=== PATIENT | female | born 1960 ===

== ENCOUNTER 2018-01-26 07:39 | Day surgery (SDC) | payer MEDICAID ==
[2018-01-25 08:41] VITALS: BMI 39.9
[2018-01-26] MEDS ORDERED: ceFAZolin 1 gm in NS 1 GM/100 ML BAG IVPB ONE (09:34)
--- NOTE | 2018-01-26 09:50 | CP.SDSHP ---
Same Day Surgery H & P - History Proposed Procedure: Port placement Pre-Op Diagnosis: Cervical cancer - Allergies Allergies: Allergies No Known Allergies Allergy (Verified 01/26/18 08:17) - Physical Exam Vital Signs: Vital Signs 01/26/18 08:05 Temperature 97.6 F Pulse Rate 76 Respiratory 18 Rate Blood Pressure 150/90 O2 Sat by Pulse 97 Oximetry Mental Status: Alert & Oriented x3 Neuro: WNL Heart: WNL Lungs: WNL - Impression Impression: Pt with BACK ROLLER malignancy requiring port for chemotherapy. Plan right IJV port placement. Informed consent obtained. Pt. Evaluated Today:Candidate for Anesthesia & Procedure: Yes (ASA 3 Malampati 3 ) Short Stay Discharge - Short Stay Discharge Admitting Diagnosis/Reason for Visit: dx: ENDOMETRIAL CANCER Disposition: HOME/ ROUTINE
[2018-01-26] MEDS ORDERED: Midazolam 2 MG/2 ML VIAL ONE (10:01)
[2018-01-26] MEDS ORDERED: Propofol 10 mg/ml Inj (20 ML) ONE ×2 (10:02)
[2018-01-26] MEDS ORDERED: Lidocaine Hydrochloride 5 ML INJ ONE ×2 (10:29)
[2018-01-26] MEDS ORDERED: Lidocaine 2% MPF (5 ml) Inj ONE (10:30)
--- NOTE | 2018-01-26 10:31 | PCM.SURG1 ---
Surgeon's Initial Post Op Note - Surgeon's Notes Surgeon: Kevyn Holland MD Crowning Hammer Operator: NONE Type of Anesthesia: IV Sedation Pre-Operative Diagnosis: Cervical cancer Operative Findings: Patent right IJV Post-Operative Diagnosis: Cervical cancer Operation Performed: Right IJV port placed. Specimen/Specimens Removed: NONE Estimated Blood Loss: EBL {In ML}: 3 Blood Products Given: N/A Drains Used: No Drains Post-Op Condition: Fair Date of Surgery/Procedure: 01/26/18 Time of Surgery/Procedure: 10:25
[2018-01-26] MEDS ORDERED: Sodium Chloride 0.9% 1,000 ML IV ONE (10:40)
[2018-01-26] MEDS ORDERED: Sodium Chloride 0.9% 1,000 ML IV SCH (10:45)
[2018-01-26] MEDS ORDERED: Morphine 4 MG/ML VIAL ONE (10:59)
[2018-01-26] MEDS ORDERED: Oxycodone/Acetaminophen 5/325 mg Tab ONE (11:56)
[2018-01-26] MEDS ORDERED: Oxycodone/Acetaminophen 5/325 mg Tab PO ONE (12:00)
--- NOTE | 2018-01-26 12:23 | SPECPROC ---
PROCEDURE: Date of procedure: 01/26/2018 Procedure: 1. Placement of a right IJ port catheter with ultrasound and fluoroscopic guidance, CPT 81365 2. Catheter tip confirmation with spot radiograph in the superior vena cava. Medications: The patient was sedated anesthesiologist along with monitoring, Ancef 1 gm, Lidocaine 1% w Epinephrine Fluoroscopic time: 16 seconds Radiation: 7 mGy Blood loss: 4 cc HISTORY: endometrial cancer requiring port for chemotherapy TECHNIQUE: Following informed consent the procedure time-out, patient was placed supine on the interventional table and the right neck and chest were prepped and draped in the usual sterile fashion. Ultrasound showed a compressible right internal jugular vein. After the patient was sedated by the anesthesiologist, the skin anesthetized with 1% lidocaine with epinephrine. Under direct ultrasound guidance, the right internal jugular vein was accessed with micropuncture technique. A guidewire was then advanced under fluoroscopic guidance into the superior vena cava. An image documenting ultrasound guidance for vascular access was permanently saved. The subcutaneous tissue of patient right chest was infiltrated with 1 percent lidocaine with epinephrine. A dermatotomy was made with a 15. Scalpel. The port pocket was then created with blunt dissection using a Katya clamp. The port pocket was flushed. A port catheter was then tunneled under the skin and out the venotomy site. The port catheter was flushed, advanced through a peel-away sheath, adjusted for length, and attached to the port. The port was placed in the port pocket and was secured with 2-0 SurgiPro sutures. The port was flushed and locked with heparin. The port pocket was then closed with absorbable 4-0 Polysorb sutures. The port pocket and the venotomy site were reprepped with ChloraPrep. Steri-Strips were then applied to the port incision also venotomy site. A sterile dressing was then applied. Final spot radiograph showed the right IJ port catheter with tip of the port catheter in the superior vena cava. A port is functional and ready for use. IMPRESSION: Placement of right IJ port catheter. The tip of the port is in the superior vena cava.
[2018-01-26 12:45] VITALS: BP 139/77; PULSE 69; RESP 17; TEMP 97.7; O2SAT 98
== END 2018-01-26 12:38 | disposition home or self-care (01) ==
LOC: C.SPRAD 07:39
PROVIDERS: ATTEND Radiology Vascular & Interventional Radiology
DX: Z45.2 Encounter for adjustment and management of vascular access device (principal); C54.1 Malignant neoplasm of endometrium
CPT/HCPCS: 36561; 82948; J0690; J2250; J2270; J2704; J7030